=== PATIENT | female | born 1975 | race Caucasian/White ===

== ENCOUNTER → 2024-08-26 | Outpatient (REF) | payer OTHER ==
[2024-08-26 18:57] LABS: HEMATOCRIT 43.6 % (36.0-47.0); HEMOGLOBIN 14.8 g/dl (12.0-15.5); MEAN CORPUSCULAR HEMOGLOBIN 28.7 pg (27.0-33.0); MEAN CORPUSCULAR HGB CONC 33.9 g/dl (32.0-36.5); MEAN CORPUSCULAR VOLUME 84.7 fl (80.0-96.0); PLATELET COUNT, AUTOMATED 268 10^3/uL (150-450); RED BLOOD COUNT 5.15 10^6/uL (4.00-5.40); WHITE BLOOD COUNT 6.7 10^3/uL (4.0-10.0)
[2024-08-26 19:01] LABS: ALBUMIN 4.1 G/DL (3.2-5.2); ALKALINE PHOSPHATASE 99 U/L (35-104); ALT/SGPT 30 U/L (7.0-40); AST/SGOT 22 U/L (<34); BILIRUBIN,TOTAL 0.4 MG/DL (0.3-1.2); BLOOD UREA NITROGEN 11 MG/DL (9-23); CALCIUM LEVEL 9.8 MG/DL (8.5-10.1); CARBON DIOXIDE LEVEL 29 MMOL/L (20-31); CHLORIDE LEVEL 110 MMOL/L (98-107); CHOLESTEROL LEVEL 144 MG/DL (<200); CHOLESTEROL RISK RATIO 4.04 (<5); CREATININE FOR GFR 0.57 MG/DL (0.55-1.30); GLOMERULAR FILTRATION RATE > 60.0 (>58); GLUCOSE, FASTING 86 MG/DL (60-100); HDL CHOLESTEROL 35.6 MG/DL (>40); LDL CHOLESTEROL 88.4 MG/DL (<100); NON-HDL-C 108.4 MG/DL; POTASSIUM SERUM 4.6 MMOL/L (3.5-5.1); SODIUM LEVEL 144 MMOL/L (136-145); TOTAL PROTEIN 7.7 G/DL (5.7-8.2); TRIGLYCERIDES LEVEL 100 MG/DL (<150)
[2024-08-26 19:03] LABS: FREE T4 0.71 NG/DL (0.89-1.76); THYROID STIMULATING HORMONE 16.967 uIU/ML (0.55-4.78)
[2024-08-26 19:04] LABS: TOTAL 25(OH) VITAMIN D 31.8 NG/ML (20.0-100.0)
[2024-08-26 19:12] LABS: HEMOGLOBIN A1c 5.1 % (4.0-6.0)
== END ==
LOC: M LAB REF 16:21
PROVIDERS: ATTEND Student in an Organized Health Care Education/Training Program
DX: F41.8 Other specified anxiety disorders (principal); E03.9 Hypothyroidism, unspecified

== ENCOUNTER → 2024-09-23 | Outpatient (REF) | payer OTHER ==
[2024-09-23 15:08] LABS: FREE T4 0.77 NG/DL (0.89-1.76); THYROID STIMULATING HORMONE 13.86 uIU/ML (0.55-4.78)
== END ==
LOC: M LAB REF 13:43
PROVIDERS: ATTEND Student in an Organized Health Care Education/Training Program
DX: E03.9 Hypothyroidism, unspecified (principal)

== ENCOUNTER → 2024-10-29 | Outpatient (REF) | payer OTHER ==
[2024-10-29 14:19] LABS: FREE T4 1.64 NG/DL (0.89-1.76); THYROID STIMULATING HORMONE 0.226 uIU/ML (0.55-4.78)
== END ==
LOC: M LAB REF 12:17
PROVIDERS: ATTEND Student in an Organized Health Care Education/Training Program
DX: E03.9 Hypothyroidism, unspecified (principal)

== ENCOUNTER → 2025-04-30 | Outpatient (REF) | payer OTHER ==
[2025-04-30 13:23] LABS: ALT/SGPT 30 U/L (7.0-40); AST/SGOT 22 U/L (<34); CALCIUM LEVEL 9.5 MG/DL (8.5-10.1); CARBON DIOXIDE LEVEL 25 MMOL/L (20-31); CHLORIDE LEVEL 108 MMOL/L (98-107); CHOLESTEROL LEVEL 149 MG/DL (<200); CHOLESTEROL RISK RATIO 3.39 (<5); CREATININE FOR GFR 0.60 MG/DL (0.55-1.30); GLOMERULAR FILTRATION RATE > 90.0 (>58); LDL CHOLESTEROL 86.5 MG/DL (<100); NON-HDL-C 105.1 MG/DL; POTASSIUM SERUM 4.3 MMOL/L (3.5-5.1); SODIUM LEVEL 144 MMOL/L (136-145); TRIGLYCERIDES LEVEL 93 MG/DL (<150)
== END ==
LOC: M LAB REF 11:48
PROVIDERS: ATTEND Student in an Organized Health Care Education/Training Program
DX: E03.9 Hypothyroidism, unspecified (principal); I10 Essential (primary) hypertension